=== PATIENT | female | born 1965 | race Two or more races ===

== ENCOUNTER → 2017-05-06 | Emergency (ER) | payer OTHER ==
[~2017-05-06] VITALS: Ht 165.1 cm; Wt 81.6 kg
[~2017-05-06] MED LIST: FORTAMET1000 MG
== END | disposition home or self-care (01) ==
LOC: ER 17:47
DX: S93.401A Sprain of unspecified ligament of right ankle, initial encounter (principal); S80.01XA Contusion of right knee, initial encounter; S70.01XA Contusion of right hip, initial encounter; M12.561 Traumatic arthropathy, right knee; W01.0XXA Fall on same level from slipping, tripping and stumbling without subsequent striking against object, initial encounter; Y93.01 Activity, walking, marching and hiking; Y92.480 Sidewalk as the place of occurrence of the external cause; Y99.8 Other external cause status

== ENCOUNTER 2017-11-01 14:49 | Emergency (ER) | payer OTHER ==
[~2017-11-01] VITALS: Ht 165.1 cm; Wt 81.6 kg
== END 2017-11-01 18:36 | disposition home or self-care (01) ==
LOC: ER 14:49
DX: K59.09 Other constipation (principal); R10.84 Generalized abdominal pain; R07.89 Other chest pain

== ENCOUNTER 2017-12-31 12:13 | Outpatient (CLI) | payer OTHER | END 2017-12-31 12:30 | disposition home or self-care (01) | LOC: MAMO-SONO 12:13 | DX: Z12.31 Encounter for screening mammogram for malignant neoplasm of breast (principal); Z87.898 Personal history of other specified conditions; N64.4 Mastodynia ==

== ENCOUNTER 2018-02-19 12:13 | Outpatient (CLI) | payer OTHER | END 2018-02-19 12:39 | disposition home or self-care (01) | LOC: RAD 501 12:13 | DX: M17.11 Unilateral primary osteoarthritis, right knee (principal); M16.11 Unilateral primary osteoarthritis, right hip ==

== ENCOUNTER 2018-10-04 22:33 | Inpatient (IN) | payer OTHER ==
[~2018-10-04] VITALS: Ht 162.6 cm; Wt 82.6 kg
== END 2018-10-07 15:54 | disposition home or self-care (01) | DRG 390 ==
LOC: ER 22:33 → SURG 10-05 19:55
PROVIDERS: ADMIT Colon & Rectal Surgery
PROC: BW21ZZZ Computerized Tomography (CT Scan) of Abdomen and Pelvis (ICD-10-PCS; principal; 2018-10-05)
DX: K56.690 Other partial intestinal obstruction (principal)

== ENCOUNTER 2019-07-01 12:16 | Outpatient (CLI) | payer OTHER | END 2019-07-01 12:22 | disposition home or self-care (01) | LOC: MAMO-SONO 12:16 | DX: Z12.31 Encounter for screening mammogram for malignant neoplasm of breast (principal); Z87.898 Personal history of other specified conditions ==

== ENCOUNTER → 2020-07-26 | Outpatient (CLI) | payer OTHER | END | disposition home or self-care (01) | LOC: MAMO-SONO 08:01 | DX: R94.5 Abnormal results of liver function studies (principal); N60.01 Solitary cyst of right breast; N60.02 Solitary cyst of left breast; Z12.31 Encounter for screening mammogram for malignant neoplasm of breast; N64.59 Other signs and symptoms in breast; N64.4 Mastodynia ==

== ENCOUNTER 2021-08-08 17:45 | Outpatient (CLI) | payer OTHER | END 2021-08-08 17:54 | disposition home or self-care (01) | LOC: RAD 17:45 | PROVIDERS: ATTEND Orthopaedic Surgery | DX: M79.672 Pain in left foot (principal); M79.604 Pain in right leg; M25.571 Pain in right ankle and joints of right foot ==

== ENCOUNTER 2021-09-04 09:10 | Outpatient (CLI) | payer OTHER | END 2021-09-04 18:50 | disposition home or self-care (01) | LOC: LAB 09:10 | PROVIDERS: ATTEND Internal Medicine | DX: E78.00 Pure hypercholesterolemia, unspecified (principal); E11.9 Type 2 diabetes mellitus without complications; N18.9 Chronic kidney disease, unspecified ==

== ENCOUNTER 2021-09-04 12:23 | Outpatient (CLI) | payer OTHER | END 2021-09-04 12:27 | disposition home or self-care (01) | LOC: RAD 12:23 | PROVIDERS: ATTEND Orthopaedic Surgery | DX: Z12.31 Encounter for screening mammogram for malignant neoplasm of breast (principal); M76.71 Peroneal tendinitis, right leg; N63.11 Unspecified lump in the right breast, upper outer quadrant; N63.42 Unspecified lump in left breast, subareolar ==

== ENCOUNTER 2021-09-18 10:21 | Outpatient (CLI) | payer OTHER | END 2021-09-18 10:23 | disposition home or self-care (01) | LOC: RAD 10:21 | PROVIDERS: ATTEND Orthopaedic Surgery | DX: M25.511 Pain in right shoulder (principal); M79.672 Pain in left foot; M25.561 Pain in right knee; M25.562 Pain in left knee ==

== ENCOUNTER 2021-09-28 09:34 | Outpatient (CLI) | payer OTHER | END 2021-09-28 09:46 | disposition home or self-care (01) | LOC: MRI 09:34 | PROVIDERS: ATTEND Orthopaedic Surgery | DX: M25.561 Pain in right knee (principal); M23.91 Unspecified internal derangement of right knee | CPT/HCPCS: 73721 ==

== ENCOUNTER 2022-02-05 12:39 | Outpatient (CLI) | payer OTHER | END 2022-02-05 12:44 | disposition home or self-care (01) | LOC: RAD 12:39 | DX: M54.50 Low back pain, unspecified (principal) ==

== ENCOUNTER → 2023-01-24 | Outpatient (CLI) | payer OTHER | END | disposition home or self-care (01) | LOC: TOM 09:19 | DX: R10.0 Acute abdomen (principal) ==

== ENCOUNTER 2024-02-26 09:28 | Outpatient (CLI) | payer OTHER | END 2024-02-26 09:45 | disposition home or self-care (01) | LOC: MAMO-SONO 09:28 | DX: R10.0 Acute abdomen (principal); Z12.31 Encounter for screening mammogram for malignant neoplasm of breast ==

== ENCOUNTER → 2024-04-06 | Outpatient (CLI) | payer OTHER | END | disposition home or self-care (01) | LOC: RAD 11:39 | PROVIDERS: ATTEND Orthopaedic Surgery | DX: M25.551 Pain in right hip (principal); M25.552 Pain in left hip; M25.561 Pain in right knee; M25.562 Pain in left knee ==